=== PATIENT | male | born 1985 | race Hispanic/Latino ===

== ENCOUNTER 2017-11-06 05:50 | Emergency (ER) | payer SELFPAY ==
[~2017-11-06] VITALS: Ht 172.7 cm; Wt 105.4 kg
[2017-11-06 06:49] VITALS: BP 135/75
== END 2017-11-06 06:50 | disposition home or self-care (01) ==
LOC: EME 05:50
PROC: 09C4XZZ Extirpation of Matter from Left External Auditory Canal, External Approach (ICD-10-PCS; principal; 2017-11-06)
DX: T16.2XXA Foreign body in left ear, initial encounter (principal)
CPT/HCPCS: 99281; 99283